=== PATIENT | female | born 1975 | race Two or more races ===

== ENCOUNTER 2018-01-01 09:44 | Inpatient (IN) | payer MEDICAID ==
[~2018-01-01] VITALS: Ht 152.4 cm; Wt 83.0 kg
[2018-01-01 10:13] LABS: Urine WBC None Seen /hpf (0 - 5)
[2018-01-01 10:42] LABS: Basophils # (auto) 0 uL; Eosinophils # (auto) 0.1 uL; Lymphocytes # (auto) 1.2 uL; Monocytes # (auto) 0.4 uL; Neutrophils # (auto) 4.3 uL; Nucleated Red Blood Cells % 0.1 %
[2018-01-01 10:44] LABS: Basophils % (auto) 0.4 % (0.0-2.0); Eosinophils % (auto) 1.2 % (0.0-7.0); Hematocrit 37.9 % (36.0-46.0); Lymphocytes % (auto) 20.1 % (10.0-50.0); Mean Corpuscular Hemoglobin 24.5 pg (28.0-32.0); Mean Corpuscular Hgb Conc. 31.7 g/dL (32.0-36.0); Mean Corpuscular Volume 77.2 fL (80.0-100.0); Monocytes % (auto) 6.9 % (0.0-12.0); Neutrophils % (auto) 71.4 % (37.0-80.0); Platelet Count (auto) 350 10^3/uL (140-450); Red Cell Distribution Width 16.5 % (11.8-14.3)
[2018-01-01 10:44] LABS: Urine Bacteria NONE SEEN /hpf (None Seen); Urine Blood 3+ /uL (Negative)
[2018-01-01 10:50] LABS: Urine Specific Gravity 1.016 (1.001-1.035)
[2018-01-01 10:57] LABS: INR 0.95 (0.9-1.15); Partial Thromboplastin Time 26.4 sec (23.78-33.04); Prothrombin Time 10.2 sec (9.27-12.13)
[2018-01-01 11:06] LABS: Albumin 3.7 g/dL (3.4-5.0); BUN/Creatinine Ratio 18.6; Bilirubin, Total 0.4 mg/dL (0.2-1.0); Calcium 8.4 mg/dL (8.5-10.1); Potassium 3.6 mmol/L (3.5-5.1); Total Protein 7.8 g/dL (6.4-8.2)
[2018-01-01] MEDS ORDERED: cefTRIAXone 1GM/10ml IVPUSH 10 ML IV ONE (13:15)
[2018-01-01] MEDS ORDERED: KETOROLAC TROMETH 30 MG/ML 1ML VIAL IV ONE (13:45)
[2018-01-01] MEDS ORDERED: NITROGLYCERIN 0.4 MG SL TAB SL PRN (15:30)
[2018-01-01] MEDS ORDERED: MORPHINE SULF INJ 2 MG/ML SYRINGE 1ML IV PRN (15:30)
[2018-01-01] MEDS ORDERED: LORazepam 0.5 MG TAB PO PRN (15:30)
[2018-01-01] MEDS ORDERED: LACTULOSE 20Gm/30ML SOLN PO PRN (15:30)
[2018-01-01] MEDS ORDERED: ONDANSETRON HCL 4 MG/2 ML VIAL IV PRN (15:30)
[2018-01-01] MEDS ORDERED: traMADol HCL 50 MG TAB PO PRN (15:30)
[2018-01-01] MEDS ORDERED: TEMAZEPAM 15 MG CAP PO PRN (15:30)
[2018-01-01] MEDS ORDERED: LABETALOL HCL 5 MG/ML ML 20ML VIAL IV PRN (15:30)
[2018-01-01] MEDS ORDERED: amLODIPine BESYLATE 5 MG TAB PO ONE (15:45)
[2018-01-01] MEDS: SODIUM CHLORIDE 0.9% 1,000 ML IV SCH (15:46)
[2018-01-01 16:28] LABS: Alcohol, Urine < 3.0 mg/dL (0-5); Amphetamine Screen, Urine NEGATIVE (NEGATIVE); Barbiturate Scree,Urine NEGATIVE (NEGATIVE); Benzodiazephine Screen, Urine NEGATIVE (NEGATIVE); Cannabinoid Screen, Urine NEGATIVE (NEGATIVE); Cocaine Screen, Urine NEGATIVE (NEGATIVE); Opiate Scree,Urine NEGATIVE (NEGATIVE); Phencyclidine Screen, Urine NEGATIVE (NEGATIVE)
[2018-01-01 19:50] VITALS: BP 163/88
[2018-01-01] MEDS: KETOROLAC TROMETH 30 MG/ML 1ML VIAL IV PRN (21:20)
[2018-01-01 21:39] VITALS: BP 137/81
[2018-01-02] MEDS ORDERED: LISI2.5T47 PO (01:18)
[2018-01-02] MEDS: SODIUM CHLORIDE 0.9% 1,000 ML IV SCH ×2 (01:55→12:01)
[2018-01-02 04:41] VITALS: BP 133/82
[2018-01-02] MEDS: KETOROLAC TROMETH 30 MG/ML 1ML VIAL IV PRN ×2 (05:17→16:39)
[2018-01-02 06:53] LABS: Basophils # (auto) 0 uL; Eosinophils # (auto) 0.1 uL; Mean Corpuscular Hgb Conc. 32.2 g/dL (32.0-36.0); Mean Corpuscular Volume 77.7 fL (80.0-100.0); Monocytes # (auto) 0.4 uL; Neutrophils # (auto) 2.9 uL; Nucleated Red Blood Cells % 0.1 %; White Blood Cell 4.5 10^3/uL (4.4-10.8)
[2018-01-02 06:56] LABS: Eosinophils % (auto) 2.7 % (0.0-7.0); Hematocrit 34.1 % (36.0-46.0); Lymphocytes % (auto) 23.3 % (10.0-50.0); Monocytes % (auto) 9.4 % (0.0-12.0); Neutrophils % (auto) 63.6 % (37.0-80.0); Platelet Count (auto) 303 10^3/uL (140-450); Red Blood Cells 4.39 10^6/uL (4.0-5.20)
[2018-01-02 07:25] LABS: Albumin 3.1 g/dL (3.4-5.0); BUN/Creatinine Ratio 19.2; Bilirubin, Total 0.4 mg/dL (0.2-1.0); Calcium 7.8 mg/dL (8.5-10.1); Potassium 3.6 mmol/L (3.5-5.1); Total Protein 6.9 g/dL (6.4-8.2)
[2018-01-02 08:24] VITALS: BP 153/87
[2018-01-02] MEDS ORDERED: cefTRIAXone 1GM/10ml IVPUSH 10 ML IV SCH (09:00)
[2018-01-02] MEDS: ASPirin 81 mg TAB PO SCH (09:23)
[2018-01-02] MEDS: PANTOPRAZOLE 40 MG TAB PO SCH (09:24)
[2018-01-02] MEDS: amLODIPine BESYLATE 5 MG TAB PO SCH (09:24)
[2018-01-02 10:06] LABS: Folate (Folic Acid) 16.22 ng/mL (5.38-24)
[2018-01-02 12:30] VITALS: BP 150/88
[2018-01-02] MEDS: ACETAMINOPHEN 500 MG TAB PO PRN ×2 (13:31→21:22)
[2018-01-02] MEDS: ACYCLOVIR 400 MG TAB PO SCH ×2 (16:38→21:22)
[2018-01-02 17:03] VITALS: BP 142/79
[2018-01-02 22:00] VITALS: BP 133/81
[2018-01-03] MEDS: SODIUM CHLORIDE 0.9% 1,000 ML IV SCH ×2 (02:08→10:31)
[2018-01-03 05:00] VITALS: BP 126/71
[2018-01-03 05:54] LABS: Basophils # (auto) 0 uL; Eosinophils # (auto) 0.1 uL; Monocytes # (auto) 0.4 uL; Monocytes % (auto) 7.5 % (0.0-12.0); Neutrophils # (auto) 3.2 uL; Red Cell Distribution Width 16.2 % (11.8-14.3)
[2018-01-03 06:00] LABS: Basophils % (auto) 0.5 % (0.0-2.0); Eosinophils % (auto) 1.8 % (0.0-7.0); Hematocrit 34.2 % (36.0-46.0); Lymphocytes # (auto) 1.4 uL; Lymphocytes % (auto) 26.6 % (10.0-50.0); Mean Corpuscular Hgb Conc. 32.2 g/dL (32.0-36.0); Mean Corpuscular Volume 78.3 fL (80.0-100.0); Neutrophils % (auto) 63.6 % (37.0-80.0); Nucleated Red Blood Cells % 0.1 %; Platelet Count (auto) 323 10^3/uL (140-450); Red Blood Cells 4.37 10^6/uL (4.0-5.20); White Blood Cell 5.1 10^3/uL (4.4-10.8)
[2018-01-03 06:10] LABS: Hemoglobin 11.1 g/dL (12.2-16.2); Mean Corpuscular Hemoglobin 25.4 pg (28.0-32.0)
[2018-01-03] MEDS: ACYCLOVIR 400 MG TAB PO SCH (06:13)
[2018-01-03 06:14] LABS: BUN/Creatinine Ratio 24.5; Calcium 8.1 mg/dL (8.5-10.1); Potassium 3.8 mmol/L (3.5-5.1)
[2018-01-03] MEDS: PANTOPRAZOLE 40 MG TAB PO SCH (08:24)
[2018-01-03] MEDS: amLODIPine BESYLATE 5 MG TAB PO SCH (08:25)
[2018-01-03] MEDS: ASPirin 81 mg TAB PO SCH (08:25)
[2018-01-03 08:38] VITALS: BP 139/83
[2018-01-03] MEDS ORDERED: predniSONE 20 MG TAB PO SCH (10:00)
[2018-01-03 11:12] VITALS: BP 139/83
[2018-01-03 11:49] VITALS: BP 157/85
== END 2018-01-03 12:25 | disposition home or self-care (01) | DRG 48 ==
LOC: ER 09:44 → TELE 09:45 → TELE-WESTW 19:48
PROVIDERS: ADMIT Internal Medicine; ATTEND Internal Medicine
DX: G51.0 Bell's palsy (principal); D64.9 Anemia, unspecified; E66.9 Obesity, unspecified; R31.9 Hematuria, unspecified; I10 Essential (primary) hypertension; Z68.35 Body mass index [BMI] 35.0-35.9, adult
CPT/HCPCS: 36415; 70450; 70551; 71045; 76775; 80048; 80053; 80061; 80307; 81001; 81025; 82550; 82607; 82746; 84443; 85025; 85610; 85652; 85730; 93005; 93306; 93886; 96374; 96375; J0696; J1885